=== PATIENT | male | born 1995 | race Asian ===

== ENCOUNTER 2019-08-08 17:32 | Emergency (ER) | payer OTHER ==
[~2019-08-08] VITALS: Wt 78.0 kg
[~2019-08-08 17:32] MED LIST: HYDR-4011 PO; IBUP-1542 PO
[2019-08-08 17:35] VITALS: BP 130/80; PULSE 89; RESP 18
[2019-08-08] MEDS ORDERED: HYDROCODONE/APAP (5/325) TAB PO ONE (20:00)
[2019-08-08] MEDS ORDERED: IBUPROFEN 600 MG TAB PO ONE (20:00)
== END 2019-08-08 20:23 | disposition home or self-care (01) ==
LOC: FTE 17:32
DX: S62.326A Displaced fracture of shaft of fifth metacarpal bone, right hand, initial encounter for closed fracture (principal); V17.4XXA Pedal cycle driver injured in collision with fixed or stationary object in traffic accident, initial encounter